=== PATIENT | male | born 1985 | race Caucasian/White ===

== ENCOUNTER 2023-03-06 13:38 | Outpatient (CLI) | payer OTHER, SELFPAY ==
--- NOTE | 2023-03-06 13:45 | MR_ITS ---
[address] [address] Phone:?[phone] Fax:?[phone] Referring Physician Information: Tab Dejesus M.D. [id number] [facility] [address] Phone:?[phone] Fax:?[phone] Patient:Gautam Mancini D.O.B:?1985 Sex:?Male Phone:?[phone] [facility] MRN:?[id number] Exam Date:?03/06/2023 EXAM: MRI of the RIGHT KNEE, without contrast CLINICAL: Right knee pain. Evaluate for medial meniscal tear. COMPARISONS: X-rays dated 02/26/2023. TECHNICAL: Multiplanar multisequence MRI of the right knee was obtained. SEDATION: None. CONTRAST: None. FINDINGS: Ligaments: ACL: Intact and unremarkable. PCL: Intact and unremarkable. MCL: Intact and unremarkable. LCL: Intact and unremarkable. Posterolateral corner: Popliteus, biceps femoris, iliotibial band, and the popliteofibular ligament appear intact. Posteromedial corner: Semimembranosus, pes anserine tendons and posterior oblique ligament appear intact. Extensor mechanism: Patellar tendon: Intact, without tendinopathy. Quadriceps tendon: Intact, without tendinopathy. Retinacula: Medial and lateral retinacula are intact. Fat pads: Unremarkable infrapatellar Hoffa's, quadriceps and prefemoral fat pads. Patellofemoral joint: Patella: No significant chondromalacia. Trochlea: No significant chondromalacia. Medial compartment: Medial meniscus: There is horizontal undersurface tearing involving the posterior horn on sagittal series 6 image 22-27, also seen to extend into the body segment on coronal series 8 image 17-22. Ill-defined degenerative fraying/tearing of the free edge of the posterior root on sagittal series 6 image 20-21 with mild displacement of meniscal tissue or prominent synovium along the free edge of the posterior root fibers on the same images. Medial cartilage: No significant chondromalacia. Lateral compartment: Lateral meniscus: No evidence of discrete meniscal tear or meniscal displacement. Lateral cartilage: No significant chondromalacia. Knee joint: Effusion: Small to moderate partially visualized right knee effusion. Intra-articular bodies:?No convincing bodies identified. Popliteal cyst: Moderate sized popliteal cyst is present with internal complexity/synovitis and with leakage of fluid extending along the periphery of the medial gastrocnemius muscle. Mild edema/strain also involves the adjacent medial gastrocnemius muscle. Bones: No suspicious bone marrow signal alteration or fracture line. IMPRESSION: 1. Tearing of the medial meniscus as above, with mildly displaced meniscal tissue or prominent synovium along the free edge of the posterior root fibers medial meniscus. 2. Moderate-sized leaking popliteal cyst with mild strain of the adjacent medial gastrocnemius muscle. 3. Small to moderate partially visualized joint effusion. 4. No evidence of ligamentous injury or fracture. JCZ Electronically signed on 03/07/2023 8:22:00 AM by Joe Meza D.O.
== END 2023-03-06 13:39 | disposition home or self-care (01) ==
LOC: MRI 13:41
PROVIDERS: PCP Nurse Practitioner Family; Visit Provider Orthopaedic Surgery
DX: M25.561 Pain in right knee (principal); S83.241A Other tear of medial meniscus, current injury, right knee, initial encounter; M71.21 Synovial cyst of popliteal space [Baker], right knee; M25.461 Effusion, right knee
CPT/HCPCS: 73721